=== PATIENT | female | born 1995 | race Caucasian/White ===

== ENCOUNTER 2024-01-25 19:21 | Emergency (ER) | payer MEDICAID ==
[~2024-01-25] VITALS: Ht 160 cm
[2024-01-25] MEDS ORDERED: Albuterol Sulf/Ipratropium 3 ML VIAL NEB ONE (21:20)
[2024-01-25 21:27] LABS: BASO % 0.4 % (0.0-1.0); EOS # 0.1 10*3/uL (0.0-0.4); HEMATOCRIT 36.6 % (37.0-47.0); LYMPH # 2.3 10*3/uL (1.3-4.4); LYMPH % 23.4 % (27.0-41.0); MEAN CELL VOLUME 89.9 fl (81.0-99.0); MEAN CORPUSCULAR HGB 29.5 pg (27.0-31.0); MEAN CORPUSCULAR HGB CONC 32.8 g/dl (33.0-37.0); MEAN PLATELET VOLUME 9.4 fl (9.6-12.3); MONO # 0.7 10*3/uL (0.1-1.0); MONO % 6.7 % (3.0-9.0); NEUT # 6.6 10*3/uL (2.3-7.9); NEUT % 68.2 % (47.0-73.0); PLATELET COUNT AUTOMATED 362 10*3/uL (130-400); RED BLOOD COUNT 4.07 10*6/uL (4.10-5.10); RED CELL DISTRI WIDTH 13.4 % (0-14.5); WHITE BLOOD COUNT 9.7 10*3/uL (4.8-10.8)
[2024-01-25 21:39] LABS: ACT PARTIAL THROMBO TIME 25.7 SECONDS (20.0-32.1)
[2024-01-25 21:54] LABS: ALKALINE PHOSPHATASE 61 U/L (46-116); BUN 9 mg/dl (9-23); CHLORIDE 104 mmol/L (98-107); CPK 38 U/L (34-171); LIPASE 27 U/L (12-53); POTASSIUM 3.5 mmol/L (3.4-5.1); SGPT/ALT 13 U/L (5-49); TOTAL PROTEIN 6.7 gm/dL (6.0-8.0)
[2024-01-25 21:57] LABS: B-hCG (QUALITATIVE) POSITIVE (NEGATIVE)
[2024-01-25] MEDS ORDERED: IOHEXOL 350 MG/ML 100 ML VIAL IV ONE (22:50)
[2024-01-25] MEDS ORDERED: SODIUM CHLORIDE 0.9% 100 ML BAG IV ONE (22:50)
[2024-01-25 23:20] LABS: BILIRUBIN Negative (Negative); BLOOD Negative (Negative); CLARITY Clear (Clear); COLOR Yellow (Yellow); GLUCOSE Negative (Negative); KETONE Negative (Negative); LEUKO ESTERASE Trace (Negative); NITRITE Negative (Negative); UROBILINOGEN 0.2 E.U./dl (0.0-1.0)
[2024-01-25 23:36] LABS: BACTERIA 3+; EPITHELIAL CELLS 21-30; WBC 16-20 wbc/hpf (0-5)
[2024-01-26] MEDS ORDERED: Sulfamethoxazole/Trimethopri 1 TAB TAB PO ONE (00:55)
[2024-01-26] MEDS ORDERED: SEPTDS PO (01:14)
[2024-01-26] MEDS ORDERED: PROAIR RESPICL90 MCG INH (01:14)
[2024-01-26] MEDS ORDERED: MEDROL DOSEPAK4 MG PO (01:14)
[2024-01-26] MEDS ORDERED: predniSONE 20 MG TAB PO ONE (01:15)
== END 2024-01-26 01:21 | disposition home or self-care (01) ==
LOC: ED 19:21
PROVIDERS: Emergency Medicine
DX: O99.511 Diseases of the respiratory system complicating pregnancy, first trimester (principal); Z20.822 Contact with and (suspected) exposure to COVID-19; R06.02 Shortness of breath; J84.10 Pulmonary fibrosis, unspecified; R91.8 Other nonspecific abnormal finding of lung field; N39.0 Urinary tract infection, site not specified; Z88.1 Allergy status to other antibiotic agents; Z3A.08 8 weeks gestation of pregnancy